=== PATIENT | male | born 1965 | race Two or more races ===

== ENCOUNTER 2018-02-03 20:31 | Emergency (ER) | payer OTHER ==
[~2018-02-03] VITALS: Ht 172.7 cm; Wt 100.0 kg
[2018-02-03] MEDS ORDERED: FAMOTIDINE 20 MG/2 ML ONE (21:09)
[2018-02-03] MEDS ORDERED: methylPREDNISolone SOD SUCC 125 MG/2 ML ONE (21:09)
[2018-02-03] MEDS ORDERED: SODIUM CHLORIDE 0.9% 1,000 ML IV ONE (21:12)
[2018-02-03] MEDS ORDERED: EPINEPHRINE 1 MG/ML, 1ML ONE (21:15)
[2018-02-03] MEDS ORDERED: methylPREDNISolone SOD SUCC 125 MG/2 ML IVPush ONE (21:30)
[2018-02-03] MEDS ORDERED: FAMOTIDINE 20 MG/2 ML IVPush ONE (21:30)
[2018-02-03] MEDS ORDERED: SODIUM CHLORIDE 0.9% 1,000ML IVBOLUS ONE (21:30)
[2018-02-03] MEDS ORDERED: SODIUM CHLORIDE FLUSH 10ML SYR IVF ONE (21:30)
[2018-02-03] MEDS ORDERED: EPINEPHRINE 1 MG/ML, 1ML SQ ONE (21:30)
[2018-02-03 22:39] VITALS: BP 124/78
== END 2018-02-03 23:01 | disposition home or self-care (01) ==
LOC: ED 22:23
DX: T78.3XXA Angioneurotic edema, initial encounter (principal); T78.1XXA Other adverse food reactions, not elsewhere classified, initial encounter; X58.XXXA Exposure to other specified factors, initial encounter
CPT/HCPCS: 93005; 96372; 96374; 96375; 99284; J0171; J2930; J7030; S0028